=== PATIENT | male | born 1960 | race Caucasian/White ===

== ENCOUNTER 2016-11-26 22:41 | Emergency (ER) | payer OTHER ==
--- NOTE | 2016-11-27 00:48 | EDDOCDS ---
Physician Documentation [facility] Name: Dick Carson Age: 56 yrs Sex: Male : 1960 Arrival Date: 11/26/2016 Time: 22:41 Bed Triage 1 Private MD: Victor M Car Disposition: 11/27/16 00:34 Discharged to Home/Self Care. Impression: Contusion of left front wall of thorax. - Condition is Stable. - Discharge Instructions: Rib Contusion, Chest Contusion. - Medication Reconciliation, Local Pharmacy Hours form. - Follow up: Victor M Car; When: Call to arrange an appointment; Reason: Recheck today's complaints, Continuance of care. - Problem is new. - Symptoms have worsened. Historical: - Allergies: no known allergies; - Home Meds: 1. Lipitor 10 mg Oral tab 1 tab once daily - PMHx: Hypercholesterolemia; - PSHx: right wrist fracture repair; - Social history: Smoking status: Patient states was never smoker of tobacco. No barriers to communication noted, The patient speaks fluent Maltese. - Family history: Not pertinent. - : The pt / caregiver states he / she is not on anticoagulants. Home medication list is obtained from the patient. - Exposure Risk Screening:: None identified. Vital Signs: 11/26 22:44 BP 169 / 107; Pulse 77; Resp 18; Temp 97.3(O); Pulse Ox 98% on R/A; Weight 97.61 kg / kb5 215.19 lbs (M); Height 5 ft. 11 in. (180.34 cm) (M); Pain 6/10; 11/27 00:45 BP 150 / 88; Pulse 70; Resp 18; Temp 98.0(O); Pulse Ox 99% on R/A; Pain 0/10; jmb 11/26 22:44 Body Mass Index 30.01 (97.61 kg, 180.34 cm) kb5 MDM: 11/26 22:54 Chest, 2 View (pa\E\lat) Ordered. EDMS 11/27 00:12 [facility] Payment Agreement was scanned into [employer] and attached to record. hs2 00:37 Financial registration complete. [facility] Signatures: Dispatcher [employer] EDMN Elsie Aleman RN RN rs3 Vinnie Campos PA PA mo1 Tim Ashley,OZZIE RN Maryan Klein Beatriz Flores, Reg Reg hs2 The chart was reviewed and I authenticate all verbal orders and agree with the evaluation and treatment provided.Attachments: 00:12 [facility] Payment Agreement hs2 MTDD
--- NOTE | 2016-11-27 00:48 | EDDOCDS ---
Nurse's Notes [facility] Name: Dick Carson Age: 56 yrs Sex: Male : 1960 Arrival Date: 11/26/2016 Time: 22:41 Bed Triage 1 Private MD: Victor M Car Diagnosis: Contusion of left front wall of thorax Presentation: 11/26 22:50 Presenting complaint: Patient states: injury to L anterior chest playing hockey this rs3 evening. another person's helmet hit on his chest. played after the injury without any problems. wants to get checked out. Adult Sepsis Screening: The patient does not have new or worsening altered mentation. Patient's respiratory rate is less than 22. Systolic blood pressure is greater than 100. Patient has a qSOFA score of 0- Negative Sepsis Screen. Suicide/Homicide risk assessment- the patient denies having any suicidal and/or homicidal ideations and does not present with any other emotional, behavioral or mental health complaints. Status: Patient is not a teleservices representative or dependent. Transition of care: patient was not received from another setting of care. 22:50 Acuity: GIGI Level 3 rs3 22:50 Method Of Arrival: Walkin/Carried/Asstd rs3 Triage Assessment: 22:52 General: Appears in no apparent distress. Pain: Location: anterior aspect of left upper rs3 chest. HIV screening NA for this visit Offered previously. Historical: - Allergies: no known allergies; - Home Meds: 1. Lipitor 10 mg Oral tab 1 tab once daily - PMHx: Hypercholesterolemia; - PSHx: right wrist fracture repair; - Social history: Smoking status: Patient states was never smoker of tobacco. No barriers to communication noted, The patient speaks fluent Chinese. - Family history: Not pertinent. - : The pt / caregiver states he / she is not on anticoagulants. Home medication list is obtained from the patient. - Exposure Risk Screening:: None identified. Screenin/21 00:45 Screening information is obtained from the patient. Fall risk: No risks identified. jmb Assistance ADL's: requires no assistance with activities of daily living. Abuse/DV Screen: The patient / caregiver reports he/she is: not in a situation that causes fear, pain or injury. Nutritional screening: No deficits noted. Advance Directives: Currently, there is no health care proxy. There is no active DNR order. There is no living will. There is no Power of Bed Operator. home support is adequate. Assessment: 00:45 General: Patient instructed on discharge instructions. Patient asked if there were any [facility] questions regarding discharge, patient stated no. Patient signed discharge instructions. Patient discharged in stable condition.. Vital Signs: 11/26 22:44 BP 169 / 107; Pulse 77; Resp 18; Temp 97.3(O); Pulse Ox 98% on R/A; Weight 97.61 kg kb5 (M); Height 5 ft. 11 in. (180.34 cm) (M); Pain 6/10; 11/27 00:45 BP 150 / 88; Pulse 70; Resp 18; Temp 98.0(O); Pulse Ox 99% on R/A; Pain 0/10; jmb 11/26 22:44 Body Mass Index 30.01 (97.61 kg, 180.34 cm) kb5 Vitals: 11/26 22:44 Log In Time: November 26, 2016 at 22:30. kb5 ED Course: 22:43 Patient visited by Werner Sims PCA. kb5 22:43 Patient moved to Waiting kb5 22:44 Victor M Car is Private Physician. kb5 22:47 Patient visited by Werner Sims PCA. kb5 22:47 Patient name changed from Dick\S\Shakira\S\Carson\S\ to Dick\S\F\S\Carson. EDMS 22:49 Patient moved to Pre RCE rs3 22:51 Triage Initiated rs3 23:12 Patient moved to Radiology jessica 23:55 Patient moved to Pre RCE jessica 11/27 00:12 [facility] Payment Agreement was scanned into [email or web address] and attached to record. hs2 00:19 Patient moved to Triage 1 jmb 00:20 Vinnie Campos PA is PHCP. mo1 00:20 Dixon Medrano DO is Attending Physician. mo1 00:27 Patient visited by Vinnie Campos PA. mo1 00:34 Victor M Car is Referral Physician. mo1 00:45 The patient / caregiver is instructed regarding the plan of care and ED course. jmb 00:45 No IV's were initiated during this patient's visit. No procedures done that require jmb assistance. Order Results: There are currently no results for this order. Outcome: 00:34 Discharge ordered by Provider. mo1 00:45 Discharge Assessment: Patient awake, alert and oriented x 3. No cognitive and/or jmb functional deficits noted. Patient verbalized understanding of disposition instructions. Patient awake and alert. obeys commands, Oriented to person, place and time. Patient verbalized understanding of disposition instructions. Patient has no functional deficits. patient administered narcotics - no. The following High Risk Discharge criteria are identified: None. Discharged to home ambulatory, with significant other. Condition: stable Condition: improved. Discharge instructions given to patient, Instructed on discharge instructions, follow up and referral plans. Demonstrated understanding of instructions, Pt was receptive of discharge instructions/ teaching. No special radiology studies were completed. Property sent home with patient. 00:47 Patient left the ED. justin Signatures: Dispatcher [employer] EDMS Reinaldo Restrepo Kristopher, AUTOMOBILE PAINTER AUTOMOBILE PAINTER kb5 Elsie Aleman,RN RN rs3 Vinnie Campos PA PA mo1 Tim Ashley,OZZIE RN Beatriz Jenkins, Reg Reg hs2 MTDD
--- NOTE | 2016-11-27 08:26 | REP ---
Clinical: Trauma . Comparison: 12/27/2015 . Technique: PA and lateral. Findings: The mediastinum and cardiac silhouette are normal. The lung dao are clear and without acute consolidation, effusion, or pneumothorax. The skeletal structures are intact and normal. Impression: 1. No acute cardiopulmonary process. Signed by Andre Alvarado MD 11/27/2016 08:18 A
--- NOTE | 2016-11-29 01:48 | EDDOCDS ---
Physician Documentation [facility] Name: Dick Carson Age: 56 yrs Sex: Male : 1960 Arrival Date: 11/26/2016 Time: 22:41 Bed Triage 1 Private MD: Victor M Car Disposition: 11/27/16 00:34 Discharged to Home/Self Care. Impression: Contusion of left front wall of thorax. - Condition is Stable. - Discharge Instructions: Rib Contusion, Chest Contusion. - Medication Reconciliation, Local Pharmacy Hours form. - Follow up: Victor M Car; When: Call to arrange an appointment; Reason: Recheck today's complaints, Continuance of care. - Problem is new. - Symptoms have worsened. Historical: - Allergies: no known allergies; - Home Meds: 1. Lipitor 10 mg Oral tab 1 tab once daily - PMHx: Hypercholesterolemia; - PSHx: right wrist fracture repair; - Social history: Smoking status: Patient states was never smoker of tobacco. No barriers to communication noted, The patient speaks fluent Yakut. - Family history: Not pertinent. - : The pt / caregiver states he / she is not on anticoagulants. Home medication list is obtained from the patient. - Exposure Risk Screening:: None identified. Vital Signs: 11/26 22:44 BP 169 / 107; Pulse 77; Resp 18; Temp 97.3(O); Pulse Ox 98% on R/A; Weight 97.61 kg / kb5 215.19 lbs (M); Height 5 ft. 11 in. (180.34 cm) (M); Pain 6/10; 11/27 00:45 BP 150 / 88; Pulse 70; Resp 18; Temp 98.0(O); Pulse Ox 99% on R/A; Pain 0/10; jmb 11/26 22:44 Body Mass Index 30.01 (97.61 kg, 180.34 cm) kb5 MDM: 11/26 22:54 Chest, 2 View (pa\E\lat) Ordered. EDMS 11/27 00:12 [facility] [place] Agreement was scanned into [employer] and attached to record. hs2 00:37 Financial registration complete. [facility] 10:46 T-Sheet-- Draft Copy was scanned into [employer] and attached to record. gb Signatures: Dispatcher [employer] EDMS Barnhardt, Cristal, Reg Reg gb Elsie Aleman RN RN rs3 Vinnie Campos PA PA mo1 Becker, Joshua, RN RN Maryan Klein Beatriz Perea, Reg Reg hs2 The chart was reviewed and I authenticate all verbal orders and agree with the evaluation and treatment provided.Attachments: 00:12 [facility] Payment Agreement hs2 10:46 T-Sheet-- Draft Copy gb Chart Complete MTDD
--- NOTE | 2016-11-29 01:48 | EDDOCDS ---
Physician Documentation [facility] [place] Name: Dick Carson Age: 56 yrs Sex: Male : 1960 Arrival Date: 11/26/2016 Time: 22:41 Bed Triage 1 Private MD: Victor M Car Disposition: 11/27/16 00:34 Discharged to Home/Self Care. Impression: Contusion of left front wall of thorax. - Condition is Stable. - Discharge Instructions: Rib Contusion, Chest Contusion. - Medication Reconciliation, Local Pharmacy Hours form. - Follow up: Victor M Car; When: Call to arrange an appointment; Reason: Recheck today's complaints, Continuance of care. - Problem is new. - Symptoms have worsened. Historical: - Allergies: no known allergies; - Home Meds: 1. Lipitor 10 mg Oral tab 1 tab once daily - PMHx: Hypercholesterolemia; - PSHx: right wrist fracture repair; - Social history: Smoking status: Patient states was never smoker of tobacco. No barriers to communication noted, The patient speaks fluent Maori. - Family history: Not pertinent. - : The pt / caregiver states he / she is not on anticoagulants. Home medication list is obtained from the patient. - Exposure Risk Screening:: None identified. Vital Signs: 11/26 22:44 BP 169 / 107; Pulse 77; Resp 18; Temp 97.3(O); Pulse Ox 98% on R/A; Weight 97.61 kg / kb5 215.19 lbs (M); Height 5 ft. 11 in. (180.34 cm) (M); Pain 6/10; 11/27 00:45 BP 150 / 88; Pulse 70; Resp 18; Temp 98.0(O); Pulse Ox 99% on R/A; Pain 0/10; jmb 11/26 22:44 Body Mass Index 30.01 (97.61 kg, 180.34 cm) kb5 MDM: 11/26 22:54 Chest, 2 View (pa\E\lat) Ordered. EDMS 11/27 00:12 [facility] [place] Agreement was scanned into [employer] and attached to record. hs2 00:37 Financial registration complete. [facility] 10:46 T-Sheet-- Draft Copy was scanned into [employer] and attached to record. gb Signatures: Dispatcher [employer] EDMS Barnhardt, Cristal, Reg Reg gb Elsie Aleman RN RN rs3 Vinnie Campos PA PA mo1 Becker, Joshua, RN RN Maryan Klein Beatriz Perea, Reg Reg hs2 The chart was reviewed and I authenticate all verbal orders and agree with the evaluation and treatment provided.Attachments: 00:12 [facility] [place] Agreement hs2 10:46 T-Sheet-- Draft Copy gb Chart Complete MTDD
--- NOTE | 2016-11-29 01:48 | EDDOCDS ---
Nurse's Notes [facility] Name: Dick Carson Age: 56 yrs Sex: Male : 1960 Arrival Date: 11/26/2016 Time: 22:41 Bed Triage 1 Private MD: Victor M Car Diagnosis: Contusion of left front wall of thorax Presentation: 11/26 22:50 Presenting complaint: Patient states: injury to L anterior chest playing hockey this rs3 evening. another person's helmet hit on his chest. played after the injury without any problems. wants to get checked out. Adult Sepsis Screening: The patient does not have new or worsening altered mentation. Patient's respiratory rate is less than 22. Systolic blood pressure is greater than 100. Patient has a qSOFA score of 0- Negative Sepsis Screen. Suicide/Homicide risk assessment- the patient denies having any suicidal and/or homicidal ideations and does not present with any other emotional, behavioral or mental health complaints. Status: Patient is not a director of social services or dependent. Transition of care: patient was not received from another setting of care. 22:50 Acuity: GIGI Level 3 rs3 22:50 Method Of Arrival: Walkin/Carried/Asstd rs3 Triage Assessment: 22:52 General: Appears in no apparent distress. Pain: Location: anterior aspect of left upper rs3 chest. HIV screening NA for this visit Offered previously. Historical: - Allergies: no known allergies; - Home Meds: 1. Lipitor 10 mg Oral tab 1 tab once daily - PMHx: Hypercholesterolemia; - PSHx: right wrist fracture repair; - Social history: Smoking status: Patient states was never smoker of tobacco. No barriers to communication noted, The patient speaks fluent Sami. - Family history: Not pertinent. - : The pt / caregiver states he / she is not on anticoagulants. Home medication list is obtained from the patient. - Exposure Risk Screening:: None identified. Screenin/21 00:45 Screening information is obtained from the patient. Fall risk: No risks identified. jmb Assistance ADL's: requires no assistance with activities of daily living. Abuse/DV Screen: The patient / caregiver reports he/she is: not in a situation that causes fear, pain or injury. Nutritional screening: No deficits noted. Advance Directives: Currently, there is no health care proxy. There is no active DNR order. There is no living will. There is no Power of Imagery Analyst. home support is adequate. Assessment: 00:45 General: Patient instructed on discharge instructions. Patient asked if there were any [facility] questions regarding discharge, patient stated no. Patient signed discharge instructions. Patient discharged in stable condition.. Vital Signs: 11/26 22:44 BP 169 / 107; Pulse 77; Resp 18; Temp 97.3(O); Pulse Ox 98% on R/A; Weight 97.61 kg kb5 (M); Height 5 ft. 11 in. (180.34 cm) (M); Pain 6/10; 11/27 00:45 BP 150 / 88; Pulse 70; Resp 18; Temp 98.0(O); Pulse Ox 99% on R/A; Pain 0/10; jmb 11/26 22:44 Body Mass Index 30.01 (97.61 kg, 180.34 cm) kb5 Vitals: 11/26 22:44 Log In Time: November 26, 2016 at 22:30. kb5 ED Course: 22:43 Patient visited by Werner Sims PCA. kb5 22:43 Patient moved to Waiting kb5 22:44 Victor M Car is Private Physician. kb5 22:47 Patient visited by Werner Sims PCA. kb5 22:47 Patient name changed from Dick\S\Shakira\S\Carson\S\ to Dick\S\F\S\Carson. EDMS 22:49 Patient moved to Pre RCE rs3 22:51 Triage Initiated rs3 23:12 Patient moved to Radiology jessica 23:55 Patient moved to Pre RCE jessica 11/27 00:12 [facility] Payment Agreement was scanned into [employer] and attached to record. hs2 00:19 Patient moved to Triage 1 jmb 00:20 Vinnie Campos PA is PHCP. mo1 00:20 Dixon Medrano DO is Attending Physician. mo1 00:27 Patient visited by Vinnie Campos PA. mo1 00:34 Victor M Car is Referral Physician. mo1 00:45 The patient / caregiver is instructed regarding the plan of care and ED course. jmb 00:45 No IV's were initiated during this patient's visit. No procedures done that require jmb assistance. 08:47 Chest, 2 View (pa\E\lat) Returned. EDMS 10:46 T-Sheet-- Draft Copy was scanned into [employer] and attached to record. gb Order Results: Radiology Order: Chest, 2 View (pa\E\lat) Test: Chest, 2 View (pa\E\lat) REASON FOR EXAMINATION: Trauma; Clinical: Trauma .; ; Comparison: 12/27/2015 .; ; Technique: PA and lateral.; ; Findings:; The mediastinum and cardiac silhouette are normal. The lung dao are clear and; without acute consolidation, effusion, or pneumothorax. The skeletal structures; are intact and normal.; ; Impression:; 1. No acute cardiopulmonary process.; ; ; Signed by; Andre Alvarado MD 11/27/2016 08:18 A; Outcome: 00:34 Discharge ordered by Provider. mo1 00:45 Discharge Assessment: Patient awake, alert and oriented x 3. No cognitive and/or jmb functional deficits noted. Patient verbalized understanding of disposition instructions. Patient awake and alert. obeys commands, Oriented to person, place and time. Patient verbalized understanding of disposition instructions. Patient has no functional deficits. patient administered narcotics - no. The following High Risk Discharge criteria are identified: None. Discharged to home ambulatory, with significant other. Condition: stable Condition: improved. Discharge instructions given to patient, Instructed on discharge instructions, follow up and referral plans. Demonstrated understanding of instructions, Pt was receptive of discharge instructions/ teaching. No special radiology studies were completed. Property sent home with patient. 00:47 Patient left the ED. jmb Signatures: Dispatcher [email or web address] EDMS Reinaldo Restrepo Gloria, Reg Reg gb Werner Sims, ELECTRO WINNING OPERATOR ELECTRO WINNING OPERATOR kb5 Elsie Aleman,OZZIE RN rs3 Vinnie Campos PA PA mo1 Tim Ashley RN RN jmb Stanton, Hillary, Reg Reg hs2 Chart Complete MTDD
== END 2016-11-27 00:47 | disposition home or self-care (01) ==
LOC: M ED 22:41
DX: S20.212A Contusion of left front wall of thorax, initial encounter (principal); W50.0XXA Accidental hit or strike by another person, initial encounter; Y93.22 Activity, ice hockey; Y92.830 Public park as the place of occurrence of the external cause; Y99.9 Unspecified external cause status; E78.00 Pure hypercholesterolemia, unspecified; Z79.899 Other long term (current) drug therapy

== ENCOUNTER → 2017-06-28 | Outpatient (REF) | payer OTHER ==
[2017-06-28 11:32] LABS: MEAN CORPUSCULAR HEMOGLOBIN 32.6 pg (27.0-33.0); MEAN CORPUSCULAR HGB CONC 34.4 g/dl (32.0-36.5); MEAN CORPUSCULAR VOLUME 94.6 fl (80.0-96.0); RED CELL DISTRIBUTION WIDTH 12.6 % (11.5-14.5); WHITE BLOOD COUNT 5.3 K/mm3 (4.0-10.0)
[2017-06-28 11:45] LABS: ALBUMIN 4.1 GM/DL (3.2-5.2); ALBUMIN/GLOBULIN RATIO 1.46 (1.00-1.93); ALKALINE PHOSPHATASE 49 U/L (45-117); ALT/SGPT 27 U/L (12-78); ANION GAP 4 MEQ/L (8-16); AST/SGOT 23 U/L (15-37); BILIRUBIN,TOTAL 1.7 MG/DL (0.2-1.0); BLOOD UREA NITROGEN 14 MG/DL (7-18); CALCIUM LEVEL 9.1 MG/DL (8.5-10.1); CARBON DIOXIDE LEVEL 31 MEQ/L (21-32); CHLORIDE LEVEL 106 MEQ/L (98-107); CHOLESTEROL LEVEL 199 MG/DL (<200); CREATININE FOR GFR 1.13 MG/DL (0.70-1.30); GLOMERULAR FILTRATION RATE > 60.0 (>56); GLUCOSE, FASTING 90 MG/DL (70-105); POTASSIUM SERUM 4.7 MEQ/L (3.5-5.1); SODIUM LEVEL 141 MEQ/L (136-145); TOTAL PROTEIN 6.9 GM/DL (6.4-8.2); TRIGLYCERIDES LEVEL 57 MG/DL (<150)
== END ==
LOC: M SFHCPLAZ 07:37
PROVIDERS: ATTEND Internal Medicine
DX: R73.01 Impaired fasting glucose (principal); Z79.899 Other long term (current) drug therapy; E78.00 Pure hypercholesterolemia, unspecified

== ENCOUNTER → 2018-07-03 | Outpatient (REF) | payer OTHER ==
[2018-07-03 16:22] LABS: HEMATOCRIT 45.7 % (42.0-52.0); HEMOGLOBIN 15.2 g/dl (13.5-17.5); MEAN CORPUSCULAR HEMOGLOBIN 31.5 pg (27.0-33.0); MEAN CORPUSCULAR HGB CONC 33.3 g/dl (32.0-36.5); MEAN CORPUSCULAR VOLUME 94.6 fl (80.0-96.0); PLATELET COUNT, AUTOMATED 193 10^3/uL (150-450); RED BLOOD COUNT 4.83 10^6/uL (4.30-6.10); RED CELL DISTRIBUTION WIDTH 12.7 % (11.5-14.5); WHITE BLOOD COUNT 5.9 10^3/uL (4.0-10.0)
[2018-07-03 17:00] LABS: ALBUMIN 4.2 GM/DL (3.2-5.2); ALBUMIN/GLOBULIN RATIO 1.68 (1.00-1.93); ALKALINE PHOSPHATASE 54 U/L (45-117); ALT/SGPT 24 U/L (12-78); ANION GAP 9 MEQ/L (8-16); AST/SGOT 20 U/L (7-37); BILIRUBIN,TOTAL 1.6 MG/DL (0.2-1.0); BLOOD UREA NITROGEN 15 MG/DL (7-18); CALCIUM LEVEL 8.8 MG/DL (8.5-10.1); CARBON DIOXIDE LEVEL 26 MEQ/L (21-32); CHLORIDE LEVEL 107 MEQ/L (98-107); CHOLESTEROL LEVEL 197 MG/DL (<200); CHOLESTEROL RISK RATIO 3.648 (<5); CREATININE FOR GFR 1.24 MG/DL (0.70-1.30); GLOMERULAR FILTRATION RATE > 60.0 (>56); GLUCOSE, FASTING 92 MG/DL (70-100); HDL CHOLESTEROL 54 MG/DL (>40); LDL CHOLESTEROL 121 MG/DL (<100); NON-HDL-C 143 MG/DL; POTASSIUM SERUM 4.3 MEQ/L (3.5-5.1); PSA SCREENING 1.08 NG/ML (< 4.0); SODIUM LEVEL 142 MEQ/L (136-145); TOTAL PROTEIN 6.7 GM/DL (6.4-8.2); TRIGLYCERIDES LEVEL 112 MG/DL (<150)
== END ==
LOC: M SFHCLERA 12:07
DX: Z00.00 Encounter for general adult medical examination without abnormal findings (principal); Z79.899 Other long term (current) drug therapy; E78.00 Pure hypercholesterolemia, unspecified; Z12.5 Encounter for screening for malignant neoplasm of prostate

== ENCOUNTER → 2019-07-16 | Outpatient (REF) | payer OTHER ==
[2019-07-16 12:49] LABS: ALT/SGPT 25 U/L (12-78); BILIRUBIN,TOTAL 1.7 MG/DL (0.2-1.0); BLOOD UREA NITROGEN 17 MG/DL (7-18); CALCIUM LEVEL 9.1 MG/DL (8.5-10.1); CARBON DIOXIDE LEVEL 29 MEQ/L (21-32); CHLORIDE LEVEL 108 MEQ/L (98-107); CHOLESTEROL LEVEL 184 MG/DL (<200); CHOLESTEROL RISK RATIO 3.172 (<5); CREATININE FOR GFR 1.11 MG/DL (0.70-1.30); GLOMERULAR FILTRATION RATE > 60.0 (>56); GLUCOSE, FASTING 99 MG/DL (70-100); HDL CHOLESTEROL 58 MG/DL (>40); LDL CHOLESTEROL 108 MG/DL (<100); MAGNESIUM LEVEL 2.3 MG/DL (1.8-2.4); NON-HDL-C 126 MG/DL; POTASSIUM SERUM 4.5 MEQ/L (3.5-5.1); SODIUM LEVEL 141 MEQ/L (136-145); TOTAL PROTEIN 6.9 GM/DL (6.4-8.2); TRIGLYCERIDES LEVEL 92 MG/DL (<150)
[2019-07-16 13:17] LABS: MALB URINE SIEMENS 8.8 MG/L; MAU/CREAT RATIO 5.1 MCG/MG (0.0-30.0)
== END ==
LOC: M SFHCPLAZ 08:39
PROVIDERS: ATTEND Internal Medicine
DX: E78.00 Pure hypercholesterolemia, unspecified (principal); R25.2 Cramp and spasm; R03.0 Elevated blood-pressure reading, without diagnosis of hypertension

== ENCOUNTER → 2019-09-21 | Outpatient (CLI) | payer OTHER ==
--- NOTE | 2019-09-21 17:20 | ECGEPIP ---
[facility] Test Date: 2019-09-21 Pat Name: TANK ESPARZA Department: Room: - Gender: Male Family Preservation Caseworker: GENARO : 1960 Requested By: Laureano Torres @ [facility] Order Number: [id number] Reading MD: Román Anderson Measurements Intervals [place] Rate: 56 P: 33 ID: [id number] QRS: -32 QRSD: 119 T: 17 QT: 430 QTc: 418 Interpretive Statements SINUS BRADYCARDIA MARKED LEFT AXIS DEVIATION MODERATE INTRAVENTRICULAR CONDUCTION DELAY Similar to tracing done 01-18-16 but with decreased rate Electronically Signed on 09-21-2019 17:20:08 EST by Román Anderson
== END ==
LOC: M EKG 16:22
PROVIDERS: ATTEND Orthopaedic Surgery
DX: Z01.818 Encounter for other preprocedural examination (principal); S83.241A Other tear of medial meniscus, current injury, right knee, initial encounter; R00.1 Bradycardia, unspecified; X58.XXXA Exposure to other specified factors, initial encounter; Y92.9 Unspecified place or not applicable

== ENCOUNTER 2019-10-30 16:10 | Emergency (ER) | payer OTHER ==
[~2019-10-30] VITALS: Ht 180.3 cm; Wt 94.1 kg
[2019-10-30] MEDS ORDERED: ASPI-1 PO (16:17)
[2019-10-30] MEDS ORDERED: ACET1TAB16 PO (16:17)
--- NOTE | 2019-10-30 17:07 | REP ---
Duplex extremity venous ultrasound: Right lower extremity. History: Rule out DVT. Status post right knee surgery with swelling and pain. Findings: The deep veins are anechoic and fully compressible from the groin to the popliteal fossa in the right lower extremity. Color flow imaging is homogeneous. Spectral Doppler interrogation demonstrates intact respiratory variation in flow and normal manual augmentation of flow. There is no evidence of deep vein thrombosis. There is a complex fluid collection in the right popliteal fossa extending in the mid calf. This measures 24.4 x 3.1 by 0.4 cm. This may reflect a dissecting Taveras's cyst or postoperative hematoma. Impression: Elongate complex hypoechoic fluid collection from the popliteal fossa into the calf, dissecting Taveras's cyst versus postoperative hematoma seroma. Otherwise negative right lower extremity duplex venous ultrasound. No evidence of deep vein thrombosis. Electronically Signed by Jay Perdue MD 10/30/2019 04:59 P
[2019-10-30 17:19] LABS: BASO % 0.4 % (0.0-1.0); EOS # 0.1 10^3/uL (0.0-0.5); EOS % 1.5 % (0.0-3.0); HEMATOCRIT 46.1 % (42.0-52.0); HEMOGLOBIN 14.7 g/dl (13.5-17.5); LYMPH # 1.7 10^3/uL (1.5-5.0); LYMPH % 23.8 % (24.0-44.0); MEAN CORPUSCULAR HEMOGLOBIN 30.4 pg (27.0-33.0); MEAN CORPUSCULAR HGB CONC 31.9 g/dl (32.0-36.5); MEAN CORPUSCULAR VOLUME 95.4 fl (80.0-96.0); MONO # 0.7 10^3/uL (0.0-0.8); MONO % 9.3 % (0.0-5.0); NEUTROPHILS # 4.7 10^3/uL (1.5-8.5); NEUTROPHILS % 64.7 % (36.0-66.0); PLATELET COUNT, AUTOMATED 217 10^3/uL (150-450); RED BLOOD COUNT 4.83 10^6/uL (4.30-6.10); WHITE BLOOD COUNT 7.3 10^3/uL (4.0-10.0)
[2019-10-30 17:29] LABS: INR 0.96; PROTHROMBIN TIME 12.5 SECONDS (11.8-14.0)
[2019-10-30 17:30] LABS: PARTIAL THROMBOPLASTIN TIME 30.3 SECONDS (25.0-38.4)
[2019-10-30 17:37] LABS: ERYTHROCYTE SEDIMENTATION RATE 9 mm/hr (0-20)
[2019-10-30 17:41] LABS: ALBUMIN 4.5 GM/DL (3.2-5.2); ALT/SGPT 27 U/L (12-78); BILIRUBIN,DIRECT 0.3 MG/DL (0.0-0.2); BILIRUBIN,TOTAL 1.8 MG/DL (0.2-1.0); BLOOD UREA NITROGEN 19 MG/DL (7-18); C REACTIVE PROTEIN QUANTITATIV 2.03 MG/DL (0.00-0.30); CALCIUM LEVEL 9.2 MG/DL (8.5-10.1); CARBON DIOXIDE LEVEL 29 MEQ/L (21-32); CHLORIDE LEVEL 106 MEQ/L (98-107); CREATININE FOR GFR 1.13 MG/DL (0.70-1.30); GLOMERULAR FILTRATION RATE > 60.0 (>56); GLUCOSE, FASTING 99 MG/DL (70-100); SODIUM LEVEL 139 MEQ/L (136-145); TOTAL PROTEIN 7.4 GM/DL (6.4-8.2)
[2019-10-30 18:31] VITALS: BP 139/95
--- NOTE | 2019-10-31 07:41 | ED PDOC ---
Post-Departure Follow-Up dr muñoz nd dr brady faxed formal report of extremity ultrasound for fu deuceg Aaron Centeno MD Oct 31, 2019 07:41
== END 2019-10-30 18:35 | disposition home or self-care (01) ==
LOC: M ED 16:10
DX: L76.32 Postprocedural hematoma of skin and subcutaneous tissue following other procedure (principal); E78.5 Hyperlipidemia, unspecified; Z79.82 Long term (current) use of aspirin

== ENCOUNTER → 2020-06-24 | Outpatient (REF) | payer OTHER ==
[~2020-06-24] MED LIST: ACET1TAB16 PO; ASPI-1 PO
[2020-06-24 14:07] LABS: BASO % 0.5 % (0.0-1.0); EOS # 0.1 10^3/uL (0.0-0.5); EOS % 1.8 % (0.0-3.0); HEMATOCRIT 50.5 % (42.0-52.0); HEMOGLOBIN 16.3 g/dl (13.5-17.5); LYMPH # 2.3 10^3/uL (1.5-5.0); LYMPH % 29.6 % (24.0-44.0); MEAN CORPUSCULAR HEMOGLOBIN 31.5 pg (27.0-33.0); MEAN CORPUSCULAR HGB CONC 32.3 g/dl (32.0-36.5); MEAN CORPUSCULAR VOLUME 97.7 fl (80.0-96.0); MONO # 0.6 10^3/uL (0.0-0.8); MONO % 8.4 % (0.0-5.0); NEUTROPHILS # 4.5 10^3/uL (1.5-8.5); NEUTROPHILS % 59.4 % (36.0-66.0); PLATELET COUNT, AUTOMATED 235 10^3/uL (150-450); RED BLOOD COUNT 5.17 10^6/uL (4.30-6.10); WHITE BLOOD COUNT 7.6 10^3/uL (4.0-10.0)
[2020-06-24 14:55] LABS: ALBUMIN 3.9 GM/DL (3.2-5.2); ALT/SGPT 30 U/L (12-78); BILIRUBIN,TOTAL 0.7 MG/DL (0.2-1.0); BLOOD UREA NITROGEN 13 MG/DL (7-18); CALCIUM LEVEL 8.9 MG/DL (8.5-10.1); CARBON DIOXIDE LEVEL 28 MEQ/L (21-32); CHLORIDE LEVEL 109 MEQ/L (98-107); CHOLESTEROL LEVEL 188 MG/DL (<200); CHOLESTEROL RISK RATIO 2.937 (<5); GLOMERULAR FILTRATION RATE > 60.0 (>56); GLUCOSE, FASTING 89 MG/DL (70-100); HDL CHOLESTEROL 64 MG/DL (>40); LDL CHOLESTEROL 103 MG/DL (<100); NON-HDL-C 124 MG/DL; POTASSIUM SERUM 4.6 MEQ/L (3.5-5.1); SODIUM LEVEL 142 MEQ/L (136-145); TOTAL PROTEIN 6.9 GM/DL (6.4-8.2); TRIGLYCERIDES LEVEL 105 MG/DL (<150)
[2020-06-24 15:53] LABS: HEMOGLOBIN A1c 5.5 %
== END ==
LOC: M LABDRWAD 13:02
PROVIDERS: ATTEND Internal Medicine
DX: Z00.00 Encounter for general adult medical examination without abnormal findings (principal); E78.00 Pure hypercholesterolemia, unspecified; R73.01 Impaired fasting glucose

== ENCOUNTER → 2021-07-17 | Outpatient (CLI) | payer OTHER ==
[2021-07-17 14:05] LABS: BASO % 0.5 % (0.0-1.0); EOS # 0.1 10^3/uL (0.0-0.5); EOS % 1.2 % (0.0-3.0); HEMATOCRIT 46.6 % (42.0-52.0); HEMOGLOBIN 15.1 g/dl (13.5-17.5); LYMPH # 2.1 10^3/uL (1.5-5.0); LYMPH % 36.4 % (24.0-44.0); MEAN CORPUSCULAR HEMOGLOBIN 31.1 pg (27.0-33.0); MEAN CORPUSCULAR HGB CONC 32.4 g/dl (32.0-36.5); MEAN CORPUSCULAR VOLUME 96.1 fl (80.0-96.0); MONO # 0.5 10^3/uL (0.0-0.8); MONO % 9.2 % (2.0-8.0); NEUTROPHILS % 52.5 % (36.0-66.0); PLATELET COUNT, AUTOMATED 218 10^3/uL (150-450); RED BLOOD COUNT 4.85 10^6/uL (4.30-6.10); WHITE BLOOD COUNT 5.7 10^3/uL (4.0-10.0)
[2021-07-17 14:33] LABS: ALBUMIN 3.7 GM/DL (3.2-5.2); ALT/SGPT 26 U/L (12-78); BILIRUBIN,TOTAL 1.2 MG/DL (0.2-1.0); BLOOD UREA NITROGEN 11 MG/DL (7-18); CALCIUM LEVEL 9.2 MG/DL (8.5-10.1); CARBON DIOXIDE LEVEL 28 MEQ/L (21-32); CHLORIDE LEVEL 108 MEQ/L (98-107); CHOLESTEROL LEVEL 226 MG/DL (<200); CHOLESTEROL RISK RATIO 3.531 (<5); CREATININE FOR GFR 1.24 MG/DL (0.70-1.30); GLOMERULAR FILTRATION RATE > 60.0 (>56); GLUCOSE, FASTING 106 MG/DL (70-100); HDL CHOLESTEROL 64 MG/DL (>40); LDL CHOLESTEROL 129 MG/DL (<100); NON-HDL-C 162 MG/DL; POTASSIUM SERUM 4.3 MEQ/L (3.5-5.1); SODIUM LEVEL 142 MEQ/L (136-145); TOTAL PROTEIN 6.5 GM/DL (6.4-8.2); TRIGLYCERIDES LEVEL 163 MG/DL (<150)
[2021-07-17 15:22] LABS: HEPATITIS C VIRUS ABY INDEX < 0.0 INDEX (<0.8)
== END ==
LOC: M PLALAB 09:31
PROVIDERS: ATTEND Internal Medicine
DX: R03.0 Elevated blood-pressure reading, without diagnosis of hypertension (principal); E78.00 Pure hypercholesterolemia, unspecified; Z79.899 Other long term (current) drug therapy; Z12.5 Encounter for screening for malignant neoplasm of prostate; Z11.59 Encounter for screening for other viral diseases

== ENCOUNTER → 2022-07-13 | Outpatient (REF) | payer OTHER ==
[~2022-07-13] MED LIST changes: -ACET1TAB16 PO; +ACET300T48 PO
[2022-07-13 13:32] LABS: BASO % 0.7 % (0.0-1.0); EOS # 0.1 10^3/uL (0.0-0.5); EOS % 1.8 % (0.0-3.0); HEMATOCRIT 48.3 % (42.0-52.0); HEMOGLOBIN 15.7 g/dl (13.5-17.5); MEAN CORPUSCULAR HEMOGLOBIN 31.2 pg (27.0-33.0); MEAN CORPUSCULAR HGB CONC 32.5 g/dl (32.0-36.5); MEAN CORPUSCULAR VOLUME 95.8 fl (80.0-96.0); MONO # 0.5 10^3/uL (0.0-0.8); MONO % 9.5 % (2.0-8.0); NEUTROPHILS # 2.9 10^3/uL (1.5-8.5); NEUTROPHILS % 51.8 % (36.0-66.0); PLATELET COUNT, AUTOMATED 221 10^3/uL (150-450); RED BLOOD COUNT 5.04 10^6/uL (4.30-6.10); WHITE BLOOD COUNT 5.6 10^3/uL (4.0-10.0)
[2022-07-13 13:47] LABS: ALT/SGPT 28 U/L (12-78); BILIRUBIN,TOTAL 1.7 MG/DL (0.2-1.0); BLOOD UREA NITROGEN 16 MG/DL (7-18); CALCIUM LEVEL 9.1 MG/DL (8.8-10.2); CARBON DIOXIDE LEVEL 26 MEQ/L (21-32); CHLORIDE LEVEL 107 MEQ/L (98-107); CHOLESTEROL LEVEL 194 MG/DL (<200); CHOLESTEROL RISK RATIO 3.031 (<5); GLOMERULAR FILTRATION RATE > 60.0 (>49); GLUCOSE, FASTING 100 MG/DL (70-100); HDL CHOLESTEROL 64 MG/DL (>40); LDL CHOLESTEROL 113 MG/DL (<100); NON-HDL-C 130 MG/DL; POTASSIUM SERUM 4.2 MEQ/L (3.5-5.1); SODIUM LEVEL 139 MEQ/L (136-145); TOTAL PROTEIN 7.1 GM/DL (6.4-8.2); TRIGLYCERIDES LEVEL 86 MG/DL (<150)
[2022-07-13 16:14] LABS: HEMOGLOBIN A1c 5.5 %
== END ==
LOC: M SFHCPLAZ 12:46 → M PLALAB 12:46
PROVIDERS: ATTEND Internal Medicine
DX: Z00.00 Encounter for general adult medical examination without abnormal findings (principal); E78.00 Pure hypercholesterolemia, unspecified; R73.01 Impaired fasting glucose; Z12.5 Encounter for screening for malignant neoplasm of prostate
CPT/HCPCS: 36415; 80053; 80061; 83036; 85025; G0103

== ENCOUNTER → 2022-11-09 | Outpatient (CLI) | payer OTHER ==
[2022-11-09 13:56] LABS: BLOOD UREA NITROGEN 15 MG/DL (9-23); CALCIUM LEVEL 9.2 MG/DL (8.3-10.6); CARBON DIOXIDE LEVEL 28 MMOL/L (20-31); CHLORIDE LEVEL 106 MMOL/L (98-107); CHOLESTEROL LEVEL 172 MG/DL (<200); CHOLESTEROL RISK RATIO 3.35 (<5); CREATININE FOR GFR 1.22 MG/DL (0.70-1.30); GLOMERULAR FILTRATION RATE > 60.0 (>49); GLUCOSE, FASTING 99 MG/DL (74-106); HDL CHOLESTEROL 51.2 MG/DL (>40); LDL CHOLESTEROL 89.4 MG/DL (<100); NON-HDL-C 121 MG/DL; POTASSIUM SERUM 4.9 MMOL/L (3.5-5.1); SODIUM LEVEL 139 MMOL/L (136-145); TRIGLYCERIDES LEVEL 157 MG/DL (<150)
== END ==
LOC: M PLALAB 09:49
PROVIDERS: ATTEND Internal Medicine Hematology
DX: E78.00 Pure hypercholesterolemia, unspecified (principal)

== ENCOUNTER → 2023-07-15 | Outpatient (CLI) | payer OTHER ==
[2023-07-15 14:26] LABS: BLOOD UREA NITROGEN 12 MG/DL (9-23); CARBON DIOXIDE LEVEL 30 MMOL/L (20-31); CHLORIDE LEVEL 109 MMOL/L (98-107); CHOLESTEROL LEVEL 199 MG/DL (<200); CHOLESTEROL RISK RATIO 3.52 (<5); CREATININE FOR GFR 1.17 MG/DL (0.70-1.30); GLOMERULAR FILTRATION RATE > 60.0 (>49); GLUCOSE, FASTING 94 MG/DL (74-106); HDL CHOLESTEROL 56.5 MG/DL (>40); LDL CHOLESTEROL 101.7 MG/DL (<100); NON-HDL-C 142.5 MG/DL; POTASSIUM SERUM 4.3 MMOL/L (3.5-5.1); SODIUM LEVEL 142 MMOL/L (136-145); TRIGLYCERIDES LEVEL 204 MG/DL (<150)
== END ==
LOC: M PLALAB 10:46
PROVIDERS: ATTEND Internal Medicine Hematology
DX: E78.00 Pure hypercholesterolemia, unspecified (principal)

== ENCOUNTER → 2023-08-12 | Outpatient (CLI) | payer OTHER ==
[2023-08-12 16:28] LABS: CREATININE, URINE 157.8 MG/DL; MAU/CREAT RATIO 1.9 MCG/MG (0.0-30.0)
[2023-08-12 16:32] LABS: FREE T4 0.94 NG/DL (0.89-1.76); THYROID STIMULATING HORMONE 1.992 uIU/ML (0.55-4.78)
[2023-08-12 16:34] LABS: TOTAL 25(OH) VITAMIN D 31.9 NG/ML (20.0-100.0)
[2023-08-12 17:19] LABS: HEMOGLOBIN A1c 5.3 % (4.0-6.0)
== END ==
LOC: M PLALAB 14:36
PROVIDERS: ATTEND Internal Medicine Hematology
DX: R73.01 Impaired fasting glucose (principal); Z12.5 Encounter for screening for malignant neoplasm of prostate
CPT/HCPCS: 36415; 82043; 82306; 82607; 83036; 84439; 84443; G0103

== ENCOUNTER → 2024-01-30 | Outpatient (CLI) | payer OTHER ==
[2024-01-30 10:51] LABS: BASO % 0.7 % (0.0-1.0); EOS # 0.1 10^3/uL (0.0-0.5); EOS % 2.6 % (0.0-3.0); HEMATOCRIT 48.2 % (42.0-52.0); LYMPH # 1.3 10^3/uL (1.5-5.0); LYMPH % 24.3 % (24.0-44.0); MEAN CORPUSCULAR HEMOGLOBIN 31.3 pg (27.0-33.0); MEAN CORPUSCULAR HGB CONC 33.2 g/dl (32.0-36.5); MEAN CORPUSCULAR VOLUME 94.1 fl (80.0-96.0); MONO # 0.6 10^3/uL (0.0-0.8); MONO % 10.2 % (2.0-8.0); NEUTROPHILS # 3.3 10^3/uL (1.5-8.5); PLATELET COUNT, AUTOMATED 227 10^3/uL (150-450); RED BLOOD COUNT 5.12 10^6/uL (4.30-6.10); WHITE BLOOD COUNT 5.4 10^3/uL (4.0-10.0)
[2024-01-30 10:53] LABS: C REACTIVE PROTEIN QUANTITATIV < 0.40 MG/DL (<1.0)
[2024-01-30 10:56] LABS: ALBUMIN 3.7 G/DL (3.2-5.2); ALKALINE PHOSPHATASE 59 U/L (46-116); ALT/SGPT 27 U/L (7.0-40); AST/SGOT 18 U/L (<34); BILIRUBIN,TOTAL 1.5 MG/DL (0.3-1.2); BLOOD UREA NITROGEN 16 MG/DL (9-23); CALCIUM LEVEL 9.1 MG/DL (8.3-10.6); CARBON DIOXIDE LEVEL 27 MMOL/L (20-31); CHLORIDE LEVEL 106 MMOL/L (98-107); CHOLESTEROL LEVEL 170 MG/DL (<200); CHOLESTEROL RISK RATIO 3.32 (<5); FREE T4 0.99 NG/DL (0.89-1.76); GLOMERULAR FILTRATION RATE > 60.0 (>49); GLUCOSE, FASTING 106 MG/DL (74-106); HDL CHOLESTEROL 51.2 MG/DL (>40); LDL CHOLESTEROL 81.4 MG/DL (<100); NON-HDL-C 118.8 MG/DL; POTASSIUM SERUM 4.2 MMOL/L (3.5-5.1); SODIUM LEVEL 138 MMOL/L (136-145); THYROID STIMULATING HORMONE 2.981 uIU/ML (0.55-4.78); TOTAL PROTEIN 6.5 G/DL (5.7-8.2); TRIGLYCERIDES LEVEL 187 MG/DL (<150)
[2024-01-30 10:58] LABS: VITAMIN B12 LEVEL 447 PG/ML (211-911)
[2024-01-30 11:15] LABS: HEMOGLOBIN A1c 5.3 % (4.0-6.0)
[2024-01-30 11:33] LABS: CREATININE, URINE 212.1 MG/DL
[2024-01-30 11:34] LABS: MAU/CREAT RATIO 1.8 MCG/MG (0.0-30.0)
[2024-01-31 14:09] LABS: INSULIN LEVEL 8.2 uIU/mL (2.6-24.9)
== END ==
LOC: M PLALAB 07:17
PROVIDERS: ATTEND Internal Medicine Hematology
DX: E78.00 Pure hypercholesterolemia, unspecified (principal); R73.01 Impaired fasting glucose; R03.0 Elevated blood-pressure reading, without diagnosis of hypertension

== ENCOUNTER → 2024-03-04 | Day surgery (SDC) | payer OTHER ==
[~2024-03-04] VITALS: Ht 180.3 cm; Wt 91.9 kg
[~2024-03-04] MED LIST changes: +ALIR75PE3 SQ; +ECOT81TA5 PO; +LIPI20TA PO; +NS 1,000 ML IV ONE; +propofoL 200 MG/20 ML VIAL As Ordered ONE
[2024-03-04 12:13] VITALS: TEMP 98
[2024-03-04 12:34] VITALS: BP 139/93; O2SAT 95
== END | disposition home or self-care (01) ==
LOC: M OPP 10:55
PROVIDERS: ATTEND Internal Medicine Gastroenterology
DX: Z12.11 Encounter for screening for malignant neoplasm of colon (principal); D12.0 Benign neoplasm of cecum; K64.0 First degree hemorrhoids; K57.30 Diverticulosis of large intestine without perforation or abscess without bleeding; Z79.02 Long term (current) use of antithrombotics/antiplatelets; Z79.82 Long term (current) use of aspirin

== ENCOUNTER → 2024-07-30 | Outpatient (CLI) | payer OTHER ==
[~2024-07-30] MED LIST changes: -NS 1,000 ML IV ONE; -propofoL 200 MG/20 ML VIAL As Ordered ONE
[2024-07-30 11:35] LABS: BASO % 0.4 % (0.0-1.0); EOS # 0.1 10^3/uL (0.0-0.5); EOS % 1.9 % (0.0-3.0); HEMATOCRIT 46.9 % (42.0-52.0); HEMOGLOBIN 15.8 g/dl (13.5-17.5); MEAN CORPUSCULAR HEMOGLOBIN 31.8 pg (27.0-33.0); MEAN CORPUSCULAR HGB CONC 33.7 g/dl (32.0-36.5); MEAN CORPUSCULAR VOLUME 94.4 fl (80.0-96.0); MONO # 0.6 10^3/uL (0.0-0.8); MONO % 9.4 % (2.0-8.0); NEUTROPHILS % 58.2 % (36.0-66.0); PLATELET COUNT, AUTOMATED 215 10^3/uL (150-450); RED BLOOD COUNT 4.97 10^6/uL (4.30-6.10); WHITE BLOOD COUNT 6.8 10^3/uL (4.0-10.0)
[2024-07-30 11:48] LABS: HEMOGLOBIN A1c 5.3 % (4.0-6.0)
[2024-07-30 12:07] LABS: MALB URINE SIEMENS < 3.0 MG/L; MAU/CREAT RATIO 1.2 MCG/MG (0.0-30.0)
[2024-07-30 12:09] LABS: C REACTIVE PROTEIN QUANTITATIV < 0.40 MG/DL (<1.0)
[2024-07-30 12:11] LABS: ALKALINE PHOSPHATASE 55 U/L (46-116); ALT/SGPT 21 U/L (7.0-40); AST/SGOT 15 U/L (<34); BILIRUBIN,TOTAL 1.8 MG/DL (0.3-1.2); BLOOD UREA NITROGEN 21 MG/DL (9-23); CALCIUM LEVEL 9.5 MG/DL (8.3-10.6); CARBON DIOXIDE LEVEL 26 MMOL/L (20-31); CHLORIDE LEVEL 109 MMOL/L (98-107); CHOLESTEROL LEVEL 182 MG/DL (<200); CHOLESTEROL RISK RATIO 3.29 (<5); FREE T4 1.28 NG/DL (0.89-1.76); GLOMERULAR FILTRATION RATE > 60.0 (>49); GLUCOSE, FASTING 90 MG/DL (74-106); HDL CHOLESTEROL 55.2 MG/DL (>40); LDL CHOLESTEROL 96.2 MG/DL (<100); NON-HDL-C 126.8 MG/DL; POTASSIUM SERUM 4.1 MMOL/L (3.5-5.1); PSA SCREENING 1.16 NG/ML (< 4.00); SODIUM LEVEL 142 MMOL/L (136-145); THYROID STIMULATING HORMONE 2.883 uIU/ML (0.55-4.78); TOTAL 25(OH) VITAMIN D 35.8 NG/ML (20.0-100.0); TOTAL PROTEIN 6.7 G/DL (5.7-8.2); TRIGLYCERIDES LEVEL 153 MG/DL (<150)
[2024-07-30 12:13] LABS: VITAMIN B12 LEVEL 447 PG/ML (211-911)
== END ==
LOC: M PLALAB 07:10
PROVIDERS: ATTEND Internal Medicine Hematology
DX: R73.01 Impaired fasting glucose (principal); Z12.5 Encounter for screening for malignant neoplasm of prostate; R25.2 Cramp and spasm; E78.00 Pure hypercholesterolemia, unspecified
CPT/HCPCS: 36415; 80053; 80061; 82043; 82306; 82607; 83036; 83525; 84439; 84443; 85025; 86140; G0103

== ENCOUNTER → 2025-04-08 | Outpatient (CLI) | payer OTHER ==
[2025-04-08 12:02] LABS: BASO # 0.0 10^3/uL (0.0-0.2); BASO % 0.7 % (0.0-1.0); EOS # 0.1 10^3/uL (0.0-0.5); EOS % 1.2 % (0.0-3.0); LYMPH # 1.8 10^3/uL (1.5-5.0); LYMPH % 31.3 % (24.0-44.0); MONO # 0.5 10^3/uL (0.0-0.8); MONO % 8.8 % (2.0-8.0); NEUTROPHILS # 3.3 10^3/uL (1.5-8.5); NEUTROPHILS % 57.6 % (36.0-66.0); PLATELET COUNT, AUTOMATED 212 10^3/uL (150-450)
[2025-04-08 12:05] LABS: ALT/SGPT 25 U/L (7.0-40); AST/SGOT 25 U/L (<34); C REACTIVE PROTEIN QUANTITATIV < 0.50 MG/DL (<1.0); CALCIUM LEVEL 9.1 MG/DL (8.3-10.6); CARBON DIOXIDE LEVEL 28 MMOL/L (20-31); CHLORIDE LEVEL 106 MMOL/L (98-107); CHOLESTEROL LEVEL 185 MG/DL (<200); CHOLESTEROL RISK RATIO 3.23 (<5); CREATININE FOR GFR 1.30 MG/DL (0.70-1.30); GLOMERULAR FILTRATION RATE 61.7 (>49); LDL CHOLESTEROL 99.0 MG/DL (<100); NON-HDL-C 127.8 MG/DL; POTASSIUM SERUM 5.0 MMOL/L (3.5-5.1); SODIUM LEVEL 144 MMOL/L (136-145); TRIGLYCERIDES LEVEL 144 MG/DL (<150)
[2025-04-08 12:07] LABS: FREE T4 1.07 NG/DL (0.89-1.76)
[2025-04-08 12:08] LABS: VITAMIN B12 LEVEL 412 PG/ML (211-911)
[2025-04-08 12:25] LABS: ESTIMATED AVERAGE GLUCOSE 111.0 MG/DL (60-110)
[2025-04-08 12:34] LABS: MALB URINE SIEMENS < 3.0 MG/L
[2025-04-08 12:49] LABS: CREATININE, URINE 256.0 MG/DL
[2025-04-10 13:25] LABS: INSULIN LEVEL 6.7 uIU/mL (<=18.4)
[2025-04-14 21:17] LABS: 25-HYDROXY VITAMIN D2 < 8 pg/mL; 25-HYDROXY VITAMIN D3 47 pg/mL; VITAMIN D 1 25 DIHYDROXY 47 pg/mL (18-72)
== END ==
LOC: M PLALAB 07:04
PROVIDERS: ATTEND Student in an Organized Health Care Education/Training Program
DX: Z00.00 Encounter for general adult medical examination without abnormal findings (principal)

== ENCOUNTER → 2025-07-19 | Outpatient (CLI) | payer OTHER ==
[2025-07-19 11:03] LABS: CALCIUM LEVEL 8.9 MG/DL (8.3-10.6); CARBON DIOXIDE LEVEL 29.0 MMOL/L (20-31); CHLORIDE LEVEL 104.0 MMOL/L (98-107); CREATININE FOR GFR 1.28 MG/DL (0.70-1.30); GLOMERULAR FILTRATION RATE 62.9 (>49); POTASSIUM SERUM 3.9 MMOL/L (3.5-5.1); SODIUM LEVEL 143.0 MMOL/L (136-145)
== END ==
LOC: M PLALAB 08:27
PROVIDERS: ATTEND Student in an Organized Health Care Education/Training Program
DX: N18.2 Chronic kidney disease, stage 2 (mild) (principal)